=== PATIENT | male | born 1965 | race Caucasian/White ===

== ENCOUNTER 2017-02-02 10:58 | Emergency (ER) | payer OTHER ==
[2017-02-02 11:20] VITALS: PULSE 68; O2SAT 96
--- NOTE | 2017-02-02 11:26 | ERPHSYRPT ---
- History of Present Illness Time Seen by Provider: 02/02/17 11:20 Source: patient, family Exam Limitations: no limitations Physician History: rash on right side back extending to front with burning pain for 2-3 days Timing/Duration: day(s) (2-3 days) Associated Symptoms: rash (vasiculopapular rash on right side paraspinal area) Home Medications: Clopidogrel Bisulfate [Clopidogrel] 75 mg PO 02/02/17 [History] - Review of Systems Constitutional: No Symptoms Eyes: No Symptoms Ears, Nose, & Throat: No Symptoms Respiratory: No Symptoms Cardiac: No Symptoms Abdominal/Gastrointestinal: No Symptoms Genitourinary Symptoms: No Symptoms Musculoskeletal: No Symptoms Skin: Rash - Physical Exam General Appearance: no apparent distress Eye Exam: PERRL/EOMI Ears, Nose, Throat Exam: normal ENT inspection Neck Exam: normal inspection Respiratory Exam: normal breath sounds Cardiovascular Exam: regular rate/rhythm Gastrointestinal/Abdomen Exam: soft Back Exam: rash (right side L 2-3 dermatome area) - Course Nursing assessment & vital signs reviewed: Yes - Progress Progress: unchanged Counseled pt/family regarding: diagnosis, need for follow-up - Departure Time of Disposition: 11:22 Departure Disposition: Home Clinical Impression: Shingles rash Qualifiers: Herpes zoster complications: without complications Qualified Code(s): B02.9 - Zoster without complications Condition: Stable Critical Care Time: No Referrals: TAM YATES [Primary Care Provider] - Instructions: Shingles Additional Instructions: Mr. Hidalgo, you have shingles, which appears like a chickenpox. Please apply calamine clear lotion on this area and use acyclovir 800 mg 5 times a day for 10 days. Follow-up with her primary care physician in next 2-3 days. Please review the information which is provided to you about shingles. Please follow the instructions given to you. Please take your medication as prescribed if given. If symptoms recur or get worse, come back to the emergency room if you cannot reach your primary care physician, or call your primary care physician for an appointment. Again if your symptoms get worse, come back to the emergency room. Thanks for visiting emergency room, and let us take care of you. Prescriptions: Acyclovir 800 mg [Zovirax 800 mg] 800 mg PO QID #40 tablet
[2017-02-02 11:36] VITALS: BP 166/90
== END 2017-02-02 11:32 | disposition home or self-care (01) ==
LOC: ED 10:58
DX: B02.9 Zoster without complications (principal)
CPT/HCPCS: 99281